=== PATIENT | female | born 1945 | race African-American/Black ===

== ENCOUNTER 2017-01-12 19:18 | Emergency (ER) | payer MEDICARE, OTHER ==
--- NOTE | ~2017-01-12 | CT71 ---
[facility] A Service of [facility] RADIOLOGY TEXT RESULTS PATIENT: AMANDA CLEMENTE LOCATION: [facility] : 43 UNIT #: [id number] AGE: [address]: Home Eller MD SEX: F ORDER DR: [id number] [facility] [address] [place], [place] [address] [id number] E MR#: [id number] Acc #: [id number] NAME: AMANDA CLEMENTE : 1945 SEX: F STUDY DATE/TIME: 01/12/2017 20:52 UNIT: [facility] ROOM: STUDY DESCRIPTION: CT Head Wo Contrast Attending Physician: Home Eller M.D. Ordering Physician: Home Eller M.D. Primary Care Physician: Miryam Junior M.D. MEDICAL IMAGING REPORT This report is preliminary unless electronic signature is present EXAM CT brain without contrast HISTORY Headache today after fall, hit head and left side pain. This CT exam was performed with one or more of the following radiation dose reduction techniques: automatic exposure control, adjustment of mA and/or kV according to patient size, and iterative reconstruction. FINDINGS CT brain without contrast demonstrates no intracranial hemorrhage, mass or edema. No midline shift or ventricular dilatation or extraaxial fluid collection. 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 IMPRESSION 1. No acute findings. 2. Small chronic lacunar infarcts in the lentiform nuclei. Dictated by... Jeison Lynn M.D. THIS IS AN ELECTRONICALLY VERIFIED REPORT Jeison Lynn M.D. at 01/13/2017 3:15 PM DFAtif/christy TD: 01/13/2017 00:32 JOB #: [id number] [facility] A Service [facility] RADIOLOGY TEXT RESULTS PATIENT: AMANDA CLEMENTE LOCATION: [facility] : 43 UNIT #: [id number] AGE: [address]: Home Eller MD SEX: F ORDER DR: MEDICAL IMAGING REPORT Page 1 of 1 COPY
--- NOTE | ~2017-01-12 | CR150 ---
[facility] A Service of [facility] & [facility] RADIOLOGY TEXT RESULTS PATIENT: AMANDA CLEMENTE LOCATION: [facility] : 43 UNIT #: [id number] AGE: [address]: Home Eller MD SEX: F ORDER DR: [id number] [facility] [address] [place], [place] [address] [id number] E MR#: [id number] Acc #: [id number] NAME: AMANDA CLEMENTE : 1945 SEX: F STUDY DATE/TIME: 01/12/2017 21:01 UNIT: [facility] ROOM: STUDY DESCRIPTION: CR Hip Min 2 Views Lt Attending Physician: Home Eller M.D. Ordering Physician: Home Eller M.D. Primary Care Physician: Miryam Junior M.D. MEDICAL IMAGING REPORT This report is preliminary unless electronic signature is present EXAM Left hip, 2 views HISTORY Left hip pain after fall today. FINDINGS 2 views of the left hip demonstrate normal bone alignment. No fractures identified. Bone detail is partly limited by large patient size. IMPRESSION 1. No fractures identified. 2. Bone detail is partly limited by large patient size. 3. Bone alignment is satisfactory. No joint space narrowing or dislocation. Dictated by... Jeison Lynn M.D. THIS IS AN ELECTRONICALLY VERIFIED REPORT Jeison Lynn M.D. at 01/13/2017 3:15 PM DFL/psc TD: 01/13/2017 00:34 JOB #: [id number] MEDICAL IMAGING REPORT Page 1 of 1 COPY
[~2017-01-12 19:18] MED LIST: ACCOLATE20 MG; ACCOLATE20 MG PO; ACIPHEX20 MG PO; ALBUTEROL MININEB NEB; AMLODIPINE BESY10 MG PO; ASPIRIN; ASPIRIN EC81 M1 PO; ASPIRIN PO; B COMPLEX1 CA1 PO; BENEFIBER1 PKT PO; BENIFIBER PO; BENTYL10 MG PO; CADUET 10 MG/201 TAB PO; CALCIUM-MAG-ZIN1 TAB PO; CARAFATE PO; CARDURA; CARDURA PO; CERTAGEN PO; CLIDINIUM-CDP C1 CAP; COLACE50 MG PO; COMBIVENT INH14.7 GM; COMBIVENT INH14.7 GM INH; COMBIVENT U/D3 M2 INH; DARVOCET-N 1001 TA1 DOB; DARVOCET-N 1001 TAB PO; DIATX TABLET5 MG PO; DICYCLOMINE HCL20 MG PO; DYAZIDE 37.5/251 CAP PO; ESTRACE VAG; FAMOTIDINE; FLONASE16 GM; GARLIC; GARLIC PO; GLUCOSAMINE500 M1; KCL; KCL PO; KLOR-CON PO; LIBRAX CAPSULE1 CAP PO; LISINOPRIL PO; LORTAB 5/500 TA1 TA1 PO; LORTAB 5/500 TA1 TA2 PO; MAALOX SUSPENSI30 ML PO; MACROBID 100 M100 MG PO; MAGNESIUM OXID250 M1 PO; MAXZIDE 75/50 T1 TAB; METOPROLOL SUCC50 MG PO; MULTI VITAMIN1 EACH PO; MULTIVITAMIN1 UDCAP; MYLANTA400 MG PO; NEXIUM; NEXIUM PO; NORVASC PO; OMEGA 3 FISH OI1 CAP PO; OMEGA 3 FISH OIL PO; OMEGA-3 FISH OIL PO; POTASSIUM CHLO10 ME1 PO; TOPROL XL; TOPROL XL PO; TRIAMTERENE-HC1 EAC1; TRIAMTERENE-HC1 EAC1 PO; VICODIN 5-3001 EACH PO; VIT E PO; VITAMIN C PO; VITAMIN D1000 UNIT PO; VITAMIN D2000 UNI1; XARELTO15 MG PO; ZANTAC PO; ZITHROMAX; ZITHROMAX PO; ZOCOR; ZOFRAN ODT4 MG PO; ZYRTEC; ZYRTEC PO; [UNRECOGNIZED DRUG - MIXTURE] PO; [UNRECOGNIZED DRUG - OTHER] PO
[2017-01-12 20:47] LABS: INR 1.7; PARTIAL THROMBOPLASTIN TIME 36.1 SECONDS (23.5-31.3); PROTHROMBIN TIME (PATIENT) 17.9 SECONDS (9.6-11.5)
== END 2017-01-12 22:05 | disposition home or self-care (01) ==
LOC: CED 19:18
PROVIDERS: Emergency Medicine
DX: S00.83XA Contusion of other part of head, initial encounter (principal); S70.02XA Contusion of left hip, initial encounter; I11.9 Hypertensive heart disease without heart failure; E11.9 Type 2 diabetes mellitus without complications; Z79.01 Long term (current) use of anticoagulants; Z88.0 Allergy status to penicillin; Z88.2 Allergy status to sulfonamides; W01.0XXA Fall on same level from slipping, tripping and stumbling without subsequent striking against object, initial encounter; Y92.009 Unspecified place in unspecified non-institutional (private) residence as the place of occurrence of the external cause
CPT/HCPCS: 36415; 70450; 73502; 85610; 85730; 99284

== ENCOUNTER 2017-01-15 14:18 | Emergency (ER) | payer MEDICARE, OTHER ==
--- NOTE | ~2017-01-15 | CT71 ---
[facility] A Service of [facility] RADIOLOGY TEXT RESULTS PATIENT: AMANDA CLEMENTE LOCATION: [facility] : 43 UNIT #: [id number] AGE: [address]: Antonia Chen MD SEX: F ORDER DR: [id number] [facility] [address] [place], [place] [address] [id number] E MR#: [id number] Acc #: [id number] NAME: AMANDA CLEMENTE : 1945 SEX: F STUDY DATE/TIME: 01/15/2017 15:41 UNIT: [facility] ROOM: STUDY DESCRIPTION: CT Head Wo Contrast Attending Physician: Antonia Chen M.D. Ordering Physician: Antonia Chen M.D. Primary Care Physician: No Primary Care Physician MEDICAL IMAGING REPORT This report is preliminary unless electronic signature is present EXAM CT brain without contrast. HISTORY Posterior head pain after fall 4 days ago. TECHNIQUE This CT exam was performed with one or more of the following radiation dose reduction techniques: automatic exposure control, adjustment of mA and/or kV according to patient size, and iterative reconstruction. FINDINGS CT brain without contrast demonstrates no intracranial hemorrhage, mass or edema. No midline shift or ventricular dilatation or extraaxial fluid collection. Mild chronic ischemic changes in the lateral subcortical white matter in the frontal lobes bilaterally. 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 IMPRESSION No acute findings. Mild chronic ischemic changes in the subcortical white matter in the lateral frontal lobes and small chronic lacunar infarcts in the lentiform nuclei. Dictated by... Jeison Lynn M.D. THIS IS AN ELECTRONICALLY VERIFIED REPORT Jeison Lynn M.D. at 01/15/2017 10:46 PM SHINL/verenice TD: 01/15/2017 18:55 [facility] A Service of [facility] RADIOLOGY TEXT RESULTS PATIENT: AMANDA CLEMENTE LOCATION: [facility] : 43 UNIT #: [id number] AGE: [address]: Antonia Chen MD SEX: F ORDER DR: JOB #: [id number] MEDICAL IMAGING REPORT Page 1 of 1 COPY
--- NOTE | ~2017-01-15 | CT52 ---
[facility] A Service of [facility] & [facility] RADIOLOGY TEXT RESULTS PATIENT: AMANDA CLEMENTE LOCATION: [facility] : 44 UNIT #: [id number] AGE: [address]: Antonia Chen MD SEX: F ORDER DR: [id number] [facility] [address] [place], [place] [address] [id number] E MR#: [id number] [facility] #: [id number] NAME: AMANDA CLEMENTE : 1945 SEX: F STUDY DATE/TIME: 01/15/2017 15:50 UNIT: [facility] ROOM: STUDY DESCRIPTION: CT Cervical Spine Wo Cont Attending Physician: Antonia Chen M.D. Ordering Physician: Antonia Chen M.D. Primary Care Physician: No Primary Care Physician MEDICAL IMAGING REPORT This report is preliminary unless electronic signature is present EXAM CT cervical spine without contrast HISTORY Neck pain after fall and injury 4 days ago. TECHNIQUE This CT exam was performed with one or more of the following radiation dose reduction techniques: automatic control, adjustment of mA and/or kV according to patient size, and iterative reconstruction. FINDINGS CT cervical spine was performed without contrast. Sensitivity is limited by body habitus. Slight reversal of the normal cervical lordosis could be due to positioning or muscular spasm. Mild disc space narrowing from C4-C5 to C6-C7. Small anterior and posterior marginal osteophytes from C4-C7. There is also mild degenerative facet arthropathy in the upper and lower cervical spine bilaterally.. No fractures identified. No cervical subluxation. No precervical soft tissue swelling. There is a 1.9 cm hypoechoic mass in the vub-hg-ayoku right thyroid lobe. This was not present on CT chest 04/30/2006. Further evaluation with thyroid ultrasound is recommended. IMPRESSION 1. No acute findings are identified. Exam sensitivity is partly limited by patient body habitus. 2. Iukd-ab-dpxxogij degenerative and hypertrophic changes from C4-C5 to C6-C7 with additional multilevel degenerative facet arthropathy, cwfv-te-hrhzvxnq. 3. 1.9 cm nodule in the ngv-ut-qwcew right thyroid lobe is apparently new compared to CT chest 04/30/2006. Suggest followup thyroid ultrasound on a non emergent basis. [facility] A Service of [facility] & [facility] RADIOLOGY TEXT RESULTS PATIENT: AMANDA CLEMENTE LOCATION: [facility] #: [id number] : 43 UNIT #: [id number] AGE: [address]: Antonia Chen MD SEX: F ORDER DR: Dictated by... Jeison Lynn M.D. THIS IS AN ELECTRONICALLY VERIFIED REPORT Jeison Lynn M.D. at 01/15/2017 10:46 PM DFL/rnr TD: 01/15/2017 19:07 JOB #: [id number] MEDICAL IMAGING REPORT Page 1 of 1 COPY
--- NOTE | ~2017-01-15 | CR243 ---
[facility] A Service of [facility] & [facility] RADIOLOGY TEXT RESULTS PATIENT: AMANDA CLEMENTE LOCATION: [facility] : 43 UNIT #: [id number] AGE: [address]: Antonia Chen MD SEX: F ORDER DR: [id number] [facility] [address] [place], [place] [address] [id number] E MR#: [id number] Acc #: [id number] NAME: AMANDA CLEMENTE : 1945 SEX: F STUDY DATE/TIME: 01/15/2017 16:09 UNIT: [facility] ROOM: STUDY DESCRIPTION: CR Thoracic Spine 3 Views Attending Physician: Antonia Chen M.D. Ordering Physician: Antonia Chen M.D. Primary Care Physician: No Primary Care Physician MEDICAL IMAGING REPORT This report is preliminary unless electronic signature is present EXAM Thoracic spine series, 01/15/2017. HISTORY Trauma. Pain mid lower back. Patient fell on Thursday. FINDINGS AP, lateral and swimmer's views of the thoracic spine are presented. No traumatic fracture or malalignment in the thoracic spine. Vertebral body heights and intervertebral disc space heights are normal. The central lung zones are clear. Heart is probably mildly enlarged. Visualized upper abdomen unremarkable. Degenerative changes in the cervical spine on the swimmer's view. Reversal of the normal cervical lordosis which may be positional in nature. Please see separately dictated CT of the cervical spine from the same date for full evaluation of cervical spine. Visualized ribs appear intact. Dictated by... Artemio Alvarez M.D. THIS IS AN ELECTRONICALLY VERIFIED REPORT Artemio Alvarez M.D. at 01/16/2017 7:16 PM JON/verenice TD: 01/15/2017 19:21 JOB #: [id number] MEDICAL IMAGING REPORT Page 1 of 1 COPY
--- NOTE | ~2017-01-15 | CR181 ---
[facility] A Service of [facility] RADIOLOGY TEXT RESULTS PATIENT: AMANDA CLEMENTE LOCATION: [facility] : 43 UNIT #: [id number] AGE: [address]: Antonia Chen MD SEX: F ORDER DR: [id number] [facility] [address] [place], [place] [address] [id number] E MR#: [id number] Acc #: [id number] NAME: AMANDA CLEMENTE : 1945 SEX: F STUDY DATE/TIME: 01/15/2017 16:07 UNIT: [facility] ROOM: STUDY DESCRIPTION: CR Lumbar Spine 2 or 3 Views Attending Physician: Antonia Chen M.D. Ordering Physician: Antonia Chen M.D. Primary Care Physician: No Primary Care Physician MEDICAL IMAGING REPORT This report is preliminary unless electronic signature is present EXAM Lumbar spine series, 01/15/2017. HISTORY Trauma. Pain mid lower back. Patient fell Thursday. Symptoms since Thursday. TECHNIQUE AP and 2 lateral views of the lumbar spine are presented. COMPARISON 06/22/2012 FINDINGS Mild dextroscoliosis of the lumbar spine centered at L3 level. In lateral projection, there is approximately 8 mm anterolisthesis L3 on L4. This is more pronounced than in 2011 when the anterolisthesis was approximately 5 mm. This is probably a reflection of progression of disc and facet degenerative changes. Vertebral body height are normal. No fracture is seen. Moderate disc space narrowing L3-L4. Severe disc space narrowing L4-L5, L5-S1. Disc space narrowing has progressed at L4-L5 and L5-S1. Facet degenerative changes most pronounced L3-L4, L4-L5, L5-S1. Lower thoracic spine shows degenerative change, but no acute abnormality. The visualized bony pelvis appears intact. Bowel gas pattern unremarkable. Visualized lung bases clear. Atherosclerotic arterial calcifications. Prior cholecystectomy. Dictated by... Artemio Alvarez M.D. THIS IS AN ELECTRONICALLY VERIFIED REPORT Artemio Alvarez M.D. at 01/16/2017 7:14 PM [facility] A Service of [facility] & [facility] RADIOLOGY TEXT RESULTS PATIENT: AMANDA CLEMENTE LOCATION: [facility] : 43 UNIT #: [id number] AGE: [address]: Antonia Chen MD SEX: F ORDER DR: Karli TD: 01/15/2017 19:03 JOB #: [id number] MEDICAL IMAGING REPORT Page 1 of 1 COPY
[2017-01-15 15:39] LABS: BASOPHIL# 0.1 X10e3 (0-0.3); BASOPHIL% 0.7 % (0-2.5); EOSINOPHIL% 0.5 % (0.0-7.0); HEMATOCRIT 38.9 % (35.0-45.0); HEMOGLOBIN 12.8 gm/dL (12.0-16.0); LYMPHOCYTE# 2.1 X10e3 (1.0-3.5); LYMPHOCYTE% 20.8 % (17.0-45.0); MEAN CELL VOLUME 86.3 FL (83-96); MEAN CORPUSCULAR HEMOGLOBIN 28.4 PG (28-34); MEAN CORPUSCULAR HGB CONC 32.9 g/dL (30-36); MONOCYTE# 0.6 X10e3 (0-1.0); MONOCYTE% 6.5 % (3.0-12.0); NEUTROPHIL# 7.1 X10e3 (1.5-7.1); NEUTROPHIL% 71.5 % (40-75); PLATELET COUNT 340 X10e3 (140-420); RED BLOOD COUNT 4.51 X10e (3.90-5.30); RED CELL DISTRIBUTION WIDTH 13.9 % (11.0-15.5); WHITE BLOOD COUNT 9.9 X10e3 (4.0-10.5)
[2017-01-15 15:40] LABS: DIFF IND NO
[2017-01-15 15:54] LABS: INR 1.7; PARTIAL THROMBOPLASTIN TIME 35.5 SECONDS (23.5-31.3); PROTHROMBIN TIME (PATIENT) 18.1 SECONDS (9.6-11.5)
[2017-01-15 16:08] LABS: ALBUMIN SERUM 3.9 g/dL (3.5-5.0); BILIRUBIN, DIRECT 0.1 mg/dL (0.0-0.2); BILIRUBIN,INDIRECT 0.2 mg/dL (0.0-0.9); BILIRUBIN,TOTAL 0.3 mg/dL (0.2-2.0); BUN/CREATININE RATIO 14.44; CALCIUM SERUM 9.3 mg/dL (8.4-10.2); CREATININE SERUM 0.9 mg/dL (0.6-1.4); GLOM FILT RATE Estimated 74.1 mL/min (>60); POTASSIUM 3.5 mmol/L (3.5-5.1); PROTEIN TOTAL SERUM 7.7 g/dL (6.0-8.3)
== END 2017-01-15 19:10 | disposition home or self-care (01) ==
LOC: CED 14:18
PROVIDERS: Emergency Medicine
DX: S09.90XA Unspecified injury of head, initial encounter (principal); S13.4XXA Sprain of ligaments of cervical spine, initial encounter; S23.3XXA Sprain of ligaments of thoracic spine, initial encounter; S33.5XXA Sprain of ligaments of lumbar spine, initial encounter; I10 Essential (primary) hypertension; E11.9 Type 2 diabetes mellitus without complications; J45.909 Unspecified asthma, uncomplicated; E66.01 Morbid (severe) obesity due to excess calories; W01.0XXA Fall on same level from slipping, tripping and stumbling without subsequent striking against object, initial encounter; Y92.89 Other specified places as the place of occurrence of the external cause
CPT/HCPCS: 36415; 70450; 72072; 72100; 72125; 80048; 80076; 85025; 85610; 85730; 99284

== ENCOUNTER 2017-01-17 14:24 | Emergency (ER) | payer MEDICARE, OTHER ==
--- NOTE | ~2017-01-17 | CT71 ---
[facility] A Service of [facility] RADIOLOGY TEXT RESULTS PATIENT: AMANDA CLEMENTE LOCATION: [facility] : 43 UNIT #: [id number] AGE: [address]: Himanshu Valentino MD SEX: F ORDER DR: [id number] [facility] [address] [place], [place] [address] [id number] E MR#: [id number] Acc #: [id number] NAME: AMANDA CLEMENTE : 1945 SEX: F STUDY DATE/TIME: 01/17/2017 17:00 UNIT: [facility] ROOM: STUDY DESCRIPTION: CT Head Wo Contrast Attending Physician: Himanshu Valentino M.D. Ordering Physician: Himanshu Valentino M.D. Primary Care Physician: Ivy Alvarado M.D. MEDICAL IMAGING REPORT This report is preliminary unless electronic signature is present EXAM Head CT without contrast, 01/17/17. HISTORY Headache and neck pain left posterior region of head, status post fall 5 days ago. TECHNIQUE This CT exam was performed with one or more of the following radiation dose reduction techniques: automatic exposure control, adjustment of mA and/or kV according to patient size, and iterative reconstruction. FINDINGS Multiple axial images were obtained from the skull base to vertex without intravenous contrast administration. The ventricles are normal in size, shape and position. There is periventricular microvascular white matter ischemic change. There is no midline shift. There is no mass or mass effect, hemorrhage or acute infarct. The visualized paranasal sinuses are clear. IMPRESSION No acute abnormality. No change compared with 01/15/17. Dictated by... Pramod Sheth M.D. THIS IS AN ELECTRONICALLY VERIFIED REPORT Pramod Sheth M.D. at 01/18/2017 2:13 PM MILAGRO/verenice TD: 01/17/2017 18:52 JOB #: [id number] [facility] A Service of [facility] RADIOLOGY TEXT RESULTS PATIENT: AMANDA CLEMENTE LOCATION: [facility] #: [id number] : 43 UNIT #: [id number] AGE: [address]: Himanshu Valentino MD SEX: F ORDER DR: MEDICAL IMAGING REPORT Page 1 of 1 COPY
== END 2017-01-17 17:35 | disposition home or self-care (01) ==
LOC: CED 14:24
DX: F07.81 Postconcussional syndrome (principal); E11.9 Type 2 diabetes mellitus without complications; I10 Essential (primary) hypertension; Z88.0 Allergy status to penicillin; Z88.2 Allergy status to sulfonamides; Z88.5 Allergy status to narcotic agent; Z88.1 Allergy status to other antibiotic agents
CPT/HCPCS: 70450; 99284